=== PATIENT | female | born 1945 | race Caucasian/White ===

== ENCOUNTER → 2017-11-04 | Outpatient (CLI) | payer MEDICARE ==
[~2017-11-04] MED LIST: LISI-167 PO
== END | disposition home or self-care (01) ==
LOC: CFH 10:13
PROVIDERS: ATTEND Family Medicine
DX: M81.0 Age-related osteoporosis without current pathological fracture (principal); M23.222 Derangement of posterior horn of medial meniscus due to old tear or injury, left knee; M94.262 Chondromalacia, left knee; Z78.0 Asymptomatic menopausal state
CPT/HCPCS: 77080

== ENCOUNTER → 2017-11-09 | Outpatient (CLI) | payer MEDICARE | END | disposition home or self-care (01) | LOC: CFH 10:10 | PROVIDERS: ATTEND Family Medicine | DX: K22.8 Other specified diseases of esophagus (principal); K44.9 Diaphragmatic hernia without obstruction or gangrene; K21.0 Gastro-esophageal reflux disease with esophagitis | CPT/HCPCS: 74220 ==

== ENCOUNTER 2018-03-02 17:21 | Inpatient (IN) | payer MEDICARE ==
[~2018-03-02] VITALS: Ht 170.2 cm; Wt 96.0 kg
[2018-03-02] MEDS ORDERED: OMEP40CA6 PO (17:33)
[2018-03-02 17:59] LABS: ALBUMIN 3.9 g/dL (3.4-5.0); ANION GAP 12 mmol/L (5-15); CALCIUM 9.8 mg/dL (8.5-10.1); CHLORIDE 87 mmol/L (98-107); CREATININE 0.91 mg/dL (0.55-1.02)
[2018-03-02 18:00] LABS: BASOPHILS % (AUTO) 0 % (0-1); EOSINOPHILS # (AUTO) 0.02 x10^3/uL (0-0.4); EOSINOPHILS % (AUTO) 0 % (1-7); LYMPHOCYTES # (AUTO) 1.34 x10^3/uL (1-3.4); LYMPHOCYTES % (AUTO) 15 % (22-44); MD NO; MEAN CORPUSCULAR HEMOGLOBIN 31.7 pg (27.0-34.8); MEAN CORPUSCULAR HGB CONC 34.6 g/dL (32.4-35.8); MEAN CORPUSCULAR VOLUME 91.7 fL (80-100); MEAN PLATELET VOLUME 7.3 fL (7.4-10.4); MONOCYTES # (AUTO) 0.58 x10^3/uL (0.2-0.8); MONOCYTES % (AUTO) 7 % (2-9); NEUTROPHILS # (AUTO) 6.97 x10^3/uL (1.8-6.8); NEUTROPHILS % (AUTO) 78 % (42-75); PLATELET COUNT 379 x10^3/uL (130-400); RED BLOOD COUNT 4.64 x10^6/uL (3.82-5.3); RED CELL DISTRIBUTION WIDTH 12.2 % (9.6-15.2)
[2018-03-02] MEDS ORDERED: NITROGLYCERIN SINGLE TAB 0.4 MG SL PRN (18:00)
[2018-03-02 18:04] LABS: ALANINE AMINOTRANSFERASE 27 U/L (12-78); ALKALINE PHOSPHATASE 86 U/L (45-117); BILIRUBIN,TOTAL 0.4 mg/dL (0.2-1.0); TROPONIN I < 0.015 ng/mL (0.000-0.045)
[2018-03-02] MEDS ORDERED: MAALOX/HYOSCYAMINE/LIDOCAINE 45 ML BTL ONE (18:43)
--- NOTE | 2018-03-02 18:46 | NUR ---
LATE NOTE ENTRY FOR 1721: Pt brougt in by EMS with c/o 6/10 epigastric pain that radiates to center of posterior back between shoulder blades. Pt states, "It feels like my GERD pain but more intense. I have had it for a couple of weeks." LUIS Pt connected to NIBP, continous pulse ox, and media monitor. All safety measures in place. Pt denies SOB, trauma, vomitting, diarrhea
[2018-03-02] MEDS ORDERED: MAALOX/HYOSCYAMINE/LIDOCAINE 45 ML BTL PO ONE (19:00)
--- NOTE | 2018-03-02 19:11 | NUR ---
Provided report to JILL Amaral. All questions answered.
--- NOTE | 2018-03-02 19:20 | NUR ---
REPORT FROM HOMER THOMAS MD AT BEDSIDE.
[2018-03-02] MEDS ORDERED: CIPROFLOXACIN/PMX 400MG/200ML 200 ML IV ONE (19:30)
[2018-03-02] MEDS ORDERED: METRONIDAZOLE PMX 500MG/100ML 100 ML IV ONE (19:30)
[2018-03-02] MEDS ORDERED: SODIUM CHLORIDE 0.9% 1,000 ML IV SCH (19:53)
[2018-03-02 19:59] LABS: MICROSCOPIC NOT IND
[2018-03-02] MEDS ORDERED: BISACODYL 10 MG SUPP PR PRN (20:00)
[2018-03-02] MEDS ORDERED: POLYETHYLENE GLYCOL 17 GM PACKET PO PRN (20:00)
[2018-03-02 20:02] LABS: CULTURE INDICATED? NO
--- NOTE | 2018-03-02 20:16 | NUR ---
STRAIGHT CATHED PT PT TOLERATED WELL. REPORT TO TELE.
[2018-03-02 20:25] VITALS: BP 140/91
[2018-03-02] MEDS: KETOROLAC 30 MG/1 ML IV PRN (20:56)
[2018-03-02] MEDS: LISINOPRIL 10 MG TABLET PO SCH (20:57)
[2018-03-02] MEDS: OMEPRAZOLE 20 MG CAPSULE.DR PO SCH (21:12)
[2018-03-02] MEDS: HEPARIN 5,000 UNITS/ML, 1ML SQ SCH (21:12)
[2018-03-02] MEDS: METRONIDAZOLE PMX 500MG/100ML 100 ML IV SCH (22:39)
[2018-03-02] MEDS: morphine SULFATE 10 MG/ML, 1ML IVPush PRN (23:53)
[2018-03-02] MEDS: CIPROFLOXACIN/PMX 400MG/200ML 200 ML IV SCH (23:57)
[2018-03-03] MEDS: ONDANSETRON 2MG/ML, 2ML IVPush PRN ×3 (00:02→17:15)
[2018-03-03 01:44] LABS: TROPONIN I < 0.015 ng/mL (0.000-0.045)
[2018-03-03 02:17] VITALS: BP 108/71
[2018-03-03 05:49] LABS: BASOPHILS # (AUTO) 0.03 x10^3/uL (0-0.1); BASOPHILS % (AUTO) 0 % (0-1); EOSINOPHILS # (AUTO) 0.11 x10^3/uL (0-0.4); EOSINOPHILS % (AUTO) 2 % (1-7); LYMPHOCYTES # (AUTO) 2.08 x10^3/uL (1-3.4); LYMPHOCYTES % (AUTO) 34 % (22-44); MD NO; MEAN CORPUSCULAR HEMOGLOBIN 32.1 pg (27.0-34.8); MEAN CORPUSCULAR HGB CONC 34.9 g/dL (32.4-35.8); MEAN PLATELET VOLUME 7.4 fL (7.4-10.4); MONOCYTES # (AUTO) 0.68 x10^3/uL (0.2-0.8); MONOCYTES % (AUTO) 11 % (2-9); NEUTROPHILS # (AUTO) 3.32 x10^3/uL (1.8-6.8); NEUTROPHILS % (AUTO) 53 % (42-75); PLATELET COUNT 339 x10^3/uL (130-400); RED BLOOD COUNT 4.12 x10^6/uL (3.82-5.3); RED CELL DISTRIBUTION WIDTH 12.6 % (9.6-15.2)
[2018-03-03] MEDS: HEPARIN 5,000 UNITS/ML, 1ML SQ SCH ×3 (06:01→21:52)
[2018-03-03] MEDS: KETOROLAC 30 MG/1 ML IV PRN ×3 (06:01→20:10)
[2018-03-03 06:45] LABS: ALANINE AMINOTRANSFERASE 23 U/L (12-78); ALBUMIN 3.2 g/dL (3.4-5.0); ANION GAP 9 mmol/L (5-15); CALCIUM 8.5 mg/dL (8.5-10.1); CHLORIDE 88 mmol/L (98-107); CREATININE 0.85 mg/dL (0.55-1.02)
[2018-03-03 06:49] LABS: ALKALINE PHOSPHATASE 73 U/L (45-117); BILIRUBIN,TOTAL 0.5 mg/dL (0.2-1.0); TOTAL PROTEIN 6.5 g/dL (6.4-8.2); TROPONIN I < 0.015 ng/mL (0.000-0.045)
[2018-03-03] MEDS: METRONIDAZOLE PMX 500MG/100ML 100 ML IV SCH ×3 (06:53→21:52)
[2018-03-03] MEDS: morphine SULFATE 10 MG/ML, 1ML IVPush PRN (06:53)
[2018-03-03 07:10] VITALS: BP 123/67
[2018-03-03] MEDS: OMEPRAZOLE 20 MG CAPSULE.DR PO SCH ×2 (08:04→20:09)
[2018-03-03] MEDS: SENNA/DOCUSATE TABLET PO SCH (08:04)
[2018-03-03] MEDS: LISINOPRIL 10 MG TABLET PO SCH ×2 (08:04→20:10)
[2018-03-03] MEDS: LORazepam 2 MG/ML, 1ML IVPush PRN ×4 (10:41→21:53)
[2018-03-03] MEDS: CIPROFLOXACIN/PMX 400MG/200ML 200 ML IV SCH (12:20)
[2018-03-03 13:50] VITALS: BP 154/99
[2018-03-03 19:12] VITALS: BP 148/92
[2018-03-04 01:23] VITALS: BP 110/75
[2018-03-04] MEDS: CIPROFLOXACIN/PMX 400MG/200ML 200 ML IV SCH ×2 (01:28→12:04)
[2018-03-04] MEDS: METRONIDAZOLE PMX 500MG/100ML 100 ML IV SCH ×3 (05:46→22:02)
[2018-03-04] MEDS: HEPARIN 5,000 UNITS/ML, 1ML SQ SCH ×3 (05:47→22:02)
[2018-03-04 06:07] LABS: BASOPHILS # (AUTO) 0.01 x10^3/uL (0-0.1); BASOPHILS % (AUTO) 0 % (0-1); EOSINOPHILS # (AUTO) 0.07 x10^3/uL (0-0.4); EOSINOPHILS % (AUTO) 1 % (1-7); LYMPHOCYTES % (AUTO) 19 % (22-44); MD NO; MEAN CORPUSCULAR HEMOGLOBIN 31.7 pg (27.0-34.8); MEAN CORPUSCULAR HGB CONC 34.4 g/dL (32.4-35.8); MEAN CORPUSCULAR VOLUME 92.1 fL (80-100); MONOCYTES # (AUTO) 0.83 x10^3/uL (0.2-0.8); MONOCYTES % (AUTO) 13 % (2-9); NEUTROPHILS # (AUTO) 4.39 x10^3/uL (1.8-6.8); NEUTROPHILS % (AUTO) 68 % (42-75); PLATELET COUNT 314 x10^3/uL (130-400); RED BLOOD COUNT 4.04 x10^6/uL (3.82-5.3); RED CELL DISTRIBUTION WIDTH 12.5 % (9.6-15.2)
[2018-03-04 06:13] LABS: ALBUMIN 3.2 g/dL (3.4-5.0); ANION GAP 9 mmol/L (5-15); CALCIUM 8.9 mg/dL (8.5-10.1); CHLORIDE 87 mmol/L (98-107)
[2018-03-04 06:16] LABS: ALANINE AMINOTRANSFERASE 30 U/L (12-78); ALKALINE PHOSPHATASE 65 U/L (45-117); BILIRUBIN,TOTAL 0.6 mg/dL (0.2-1.0); CREATININE 0.77 mg/dL (0.55-1.02); TOTAL PROTEIN 6.6 g/dL (6.4-8.2)
[2018-03-04 07:30] VITALS: BP 117/74
[2018-03-04] MEDS: LISINOPRIL 10 MG TABLET PO SCH (08:09)
[2018-03-04] MEDS: LORazepam 2 MG/ML, 1ML IVPush PRN (08:09)
[2018-03-04] MEDS: OMEPRAZOLE 20 MG CAPSULE.DR PO SCH ×2 (08:09→20:17)
[2018-03-04] MEDS: SENNA/DOCUSATE TABLET PO SCH (08:09)
[2018-03-04 11:33] LABS: FREE T4 (FREE THYROXINE) 1.3 ng/dL (0.76-1.46); THYROID STIMULATING HORMONE 2.96 mIU/L (0.358-3.740)
[2018-03-04 11:40] LABS: POTASSIUM,URINE RANDOM 14 mmol/L; SODIUM,URINE RANDOM 12 mmol/L
[2018-03-04 11:50] LABS: CHLORIDE,URINE RANDOM < 10 mmol/L
[2018-03-04 13:06] LABS: OSMOLALITY,URINE 201 mOsm/kg (500-850)
[2018-03-04 13:55] VITALS: BP 104/69
[2018-03-04] MEDS: ACETAMINOPHEN 325 MG TABLET PO PRN (17:35)
[2018-03-04 22:00] VITALS: BP 134/88
[2018-03-05] MEDS: CIPROFLOXACIN/PMX 400MG/200ML 200 ML IV SCH ×3 (00:11→23:40)
[2018-03-05 02:02] VITALS: BP 125/72
[2018-03-05 02:09] VITALS: BP 113/70
[2018-03-05 05:30] LABS: ALBUMIN 3.1 g/dL (3.4-5.0); ANION GAP 8 mmol/L (5-15); CALCIUM 8.7 mg/dL (8.5-10.1); CHLORIDE 100 mmol/L (98-107); CREATININE 0.71 mg/dL (0.55-1.02)
[2018-03-05] MEDS: HEPARIN 5,000 UNITS/ML, 1ML SQ SCH ×3 (05:46→21:41)
[2018-03-05] MEDS: METRONIDAZOLE PMX 500MG/100ML 100 ML IV SCH ×4 (06:00→21:41)
[2018-03-05] MEDS: ACETAMINOPHEN 325 MG TABLET PO PRN ×3 (06:01→20:34)
[2018-03-05 08:28] VITALS: BP 123/84
[2018-03-05] MEDS: SENNA/DOCUSATE TABLET PO SCH (08:38)
[2018-03-05] MEDS: OMEPRAZOLE 20 MG CAPSULE.DR PO SCH ×2 (08:39→20:34)
[2018-03-05 15:23] VITALS: BP 142/98
[2018-03-05 19:06] VITALS: BP 131/80
[2018-03-05] MEDS: KETOROLAC 30 MG/1 ML IV PRN (23:39)
[2018-03-06 00:25] VITALS: BP 107/58
[2018-03-06] MEDS: LORazepam 2 MG/ML, 1ML IVPush PRN (00:45)
[2018-03-06 05:41] LABS: ANION GAP 6 mmol/L (5-15); CALCIUM 8.6 mg/dL (8.5-10.1); CHLORIDE 105 mmol/L (98-107); CREATININE 0.88 mg/dL (0.55-1.02)
[2018-03-06] MEDS: HEPARIN 5,000 UNITS/ML, 1ML SQ SCH ×2 (06:08→13:15)
[2018-03-06] MEDS: METRONIDAZOLE PMX 500MG/100ML 100 ML IV SCH ×2 (06:08→13:15)
[2018-03-06 08:05] VITALS: BP 118/81
[2018-03-06] MEDS: SENNA/DOCUSATE TABLET PO SCH (08:15)
[2018-03-06] MEDS: OMEPRAZOLE 20 MG CAPSULE.DR PO SCH (08:15)
[2018-03-06] MEDS ORDERED: METR500T PO (10:45)
[2018-03-06] MEDS ORDERED: CEFD300C37 PO (10:45)
[2018-03-06] MEDS: CIPROFLOXACIN/PMX 400MG/200ML 200 ML IV SCH (11:38)
== END 2018-03-06 13:20 | disposition home or self-care (01) | DRG 392 ==
LOC: ED 19:14 → 5SO 19:54 → 4NOR 03-04 20:59
PROVIDERS: ADMIT Internal Medicine; ATTEND Family Medicine
DX: K57.32 Diverticulitis of large intestine without perforation or abscess without bleeding (principal); E87.1 Hypo-osmolality and hyponatremia; N23 Unspecified renal colic; N83.292 Other ovarian cyst, left side; E78.5 Hyperlipidemia, unspecified; K21.9 Gastro-esophageal reflux disease without esophagitis; G89.29 Other chronic pain; I10 Essential (primary) hypertension; K44.9 Diaphragmatic hernia without obstruction or gangrene; Z90.711 Acquired absence of uterus with remaining cervical stump
CPT/HCPCS: 36415; 71045; 74176; 76830; 80048; 80053; 80069; 81003; 82436; 83690; 83930; 83935; 84133; 84295; 84300; 84439; 84443; 84484; 84550; 85025; 93005; 99285; G0378; J0744; J1644; J1885; J2405; J2060; J2270; J7030